=== PATIENT | male | born 1940 | race Caucasian/White ===

== ENCOUNTER 2016-11-03 10:00 | Emergency (ER) | payer MEDICAID, MEDICARE, OTHER ==
[~2016-11-03] VITALS: Ht 182.9 cm; Wt 76.0 kg
[2016-11-03 10:02] VITALS: BP 99/58; PULSE 100; RESP 20; TEMP 98.5; O2SAT 97
--- NOTE | 2016-11-03 11:21 | RADRPT ---
EXAM DATE/TIME: 11/03/2016 11:00 [facility] COMPARISON: No previous studies available for comparison. INDICATIONS : Tightness in chest. MEDICAL HISTORY : None. SURGICAL HISTORY : None. ENCOUNTER: Initial ACUITY: 1 day PAIN SCORE: 5/10 LOCATION: Bilateral chest FINDINGS: PA and lateral views of the chest demonstrate the lungs to be symmetrically aerated without evidence of mass, infiltrate or effusion. The cardiomediastinal contours are unremarkable. Osseous structure s are intact. CONCLUSION: Normal examination. Anil Chiang MD on November 03, 2016 at 11:19 Board Certified Radiologist. This report was verified electronically.
--- NOTE | 2016-11-03 11:22 | RADRPT ---
EXAM DATE/TIME: 11/03/2016 11:06 [facility] COMPARISON: No previous studies available for comparison. INDICATIONS : Abdominal distention. Last bowel movement was 2 weeks ago. MEDICAL HISTORY : None. SURGICAL HISTORY : None. ENCOUNTER: Initial ACUITY: 2 weeks PAIN SCORE: 5/10 LOCATION: Bilateral abdomen FINDINGS: Supine view of the abdomen was performed. The abdominal bowel gas pattern is normal. No abnormal ma sses, or organomegaly is seen. The osseous structures are unremarkable. CONCLUSION: Normal examination. Few calcifications overlying the right kidney could be renal stones. Anil Chiang MD on November 03, 2016 at 11:20 Board Certified Radiologist. This report was verified electronically.
[2016-11-03 12:00] LABS: AUTOMATED NEUTROPHIL # 8.4 TH/MM3 (1.8-7.7); BASOPHIL # 0.1 TH/MM3 (0-0.2); BASOPHIL % 0.9 % (0.0-2.0); EOSINOPHIL # 0.1 TH/MM3 (0-0.4); EOSINOPHIL % 1.2 % (0.0-4.0); HEMATOCRIT 38.5 % (39.0-51.0); HEMO FLAGS DIFF FINAL; LYMPH % 16.6 % (9.0-44.0); LYMPHOCYTE # 1.9 TH/MM3 (1.0-4.8); MEAN CELL VOLUME 85.4 FL (80.0-100.0); MEAN CORPUSCULAR HEMOGLOBIN 29.5 PG (27.0-34.0); MEAN CORPUSCULAR HGB CONC 34.6 % (32.0-36.0); MONO % 8.2 % (0.0-8.0); NEUT % 73.1 % (16.0-70.0); PLATELET COUNT 510 TH/MM3 (150-450); RED BLOOD COUNT 4.51 MIL/MM3 (4.50-5.90); RED CELL DISTRIBUTION WIDTH 14.2 % (11.6-17.2); WHITE BLOOD COUNT 11.5 TH/MM3 (4.0-11.0)
[2016-11-03] MEDS ORDERED: NO MEDICATIONS (12:09)
[2016-11-03] MEDS ORDERED: SODIUM CHLOR 0.9% 1000 ML INJ 1,000 ML IV SCH (12:14)
[2016-11-03] MEDS ORDERED: SODIUM CHLORIDE 0.9% FLUSH 10 ML FLUSH IV FLUSH PRN (12:15)
--- NOTE | 2016-11-03 12:17 | PD ---
HPI Chief Complaint: General Weakness Time Seen by Provider: 12:17 Travel History International Travel<30 days: No Contact w/Intl Traveler<30days: No Traveled to known affect area: No History of Present Illness HPI Patient comes in for evaluation of generalized weakness on one week. Patient reports that 3 weeks ago he was having cold symptoms consisting of dry nonproductive cough and nonbloody loose stools. Patient states that resolved after drinking orange juice and resting. Patient reports over the past week he' s had soreness throughout his back and pain in his legs when he tries to walk. Patient denies doing anything for this. Denies anything making it better or worse. Patient denies any fevers, chest pain, shortness of breath, abdominal pain, headache, nausea/vomiting, numbness or tingling anywhere, or loss of bowel or bladder. Patient reports he is not not had a solid bowel movement in 3 weeks, but relates this to not eating and only having ensure as well as orange juice. PFSH Past Medical History AAA: Yes Diminished Hearing: No Tetanus Vaccination: < 5 Years Influenza Vaccination: Yes Social History Alcohol Use: No Tobacco Use: Yes Substance Use: Yes (marijuana) Allergies-Medications (Allergen,Severity, Reaction): Coded Allergies: No Known Allergies (Unverified , 11/03/16) Reported Meds & Prescriptions Reported Meds & Active Scripts Active Reported [No Medications] Review of Systems Except as stated in HPI: all other systems reviewed are Neg Physical Exam Narrative GENERAL: Well-developed, well nourished, in no acute distress, and non-ill appearing. SKIN: Focused skin assessment warm and dry. HEAD: Atraumatic. Normocephalic. EYES: Pupils equal and round. EOMI. No scleral icterus. No injection or drainage. ENT: No nasal bleeding or discharge. Mucous membranes pink and moist. NECK: Trachea midline. No JVD. Supple. No nuclear rigidity. CARDIOVASCULAR: Regular rate and rhythm. No murmur appreciated. RESPIRATORY: No accessory muscle use. No respiratory distress. Clear to auscultation. Breath sounds equal bilaterally. GASTROINTESTINAL: Abdomen soft, non-tender, nondistended. Hepatic and splenic margins not palpable. Normal bowel sounds 4. No pulsatile mass. MUSCULOSKELETAL: No obvious deformities. No clubbing. No cyanosis. No edema. Full range of motion. NEUROLOGICAL: Awake and alert. No obvious cranial nerve deficits. Motor grossly within normal limits. Normal speech. PSYCHIATRIC: Appropriate mood and affect; insight and judgment normal. Data Data Last Documented VS Vital Signs Date Time Temp Pulse Resp B/P Pulse Ox O2 Delivery O2 Flow Rate FiO2 11/03/16 14:59 70 18 141/74 99 11/03/16 12:36 Room Air 11/03/16 10:02 98.5 Orders Complete Blood Count With Diff (11/03/16 10:45) Comprehensive Metabolic Panel (11/03/16 10:45) Prothrombin Time / Inr (Pt) (11/03/16 10:45) Act Partial Throm Time (Ptt) (11/03/16 10:45) Urinalysis - C+S If Indicated (11/03/16 10:45) Electrocardiogram (11/03/16 10:45) Abdomen, Kub Only (11/03/16 10:45) Chest, Pa & Lat (11/03/16 ) Magnesium (Mg) (11/03/16 10:45) Creatine Kinase (Cpk) (11/03/16 12:14) Iv Access Insert/Monitor (11/03/16 12:14) Ecg Monitoring (11/03/16 12:14) Oximetry (11/03/16 12:14) Sodium Chlor 0.9% 1000 Ml Inj (Ns 1000 M (11/03/16 12:14) Sodium Chloride 0.9% Flush (Ns Flush) (11/03/16 12:15) CKMB (11/03/16 11:38) CKMB% (11/03/16 11:38) Sodium Chlor 0.9% 1000 Ml Inj (Ns 1000 M (11/03/16 13:45) Labs Laboratory Tests Test 11/03/16 11/03/16 11:38 12:45 White Blood Count 11.5 TH/MM3 Red Blood Count 4.51 MIL/MM3 Hemoglobin 13.3 GM/DL Hematocrit 38.5 % Mean Corpuscular Volume 85.4 FL Mean Corpuscular Hemoglobin 29.5 PG Mean Corpuscular Hemoglobin 34.6 % Concent Red Cell Distribution Width 14.2 % Platelet Count 510 TH/MM3 Mean Platelet Volume 7.3 FL Neutrophils (%) (Auto) 73.1 % Lymphocytes (%) (Auto) 16.6 % Monocytes (%) (Auto) 8.2 % Eosinophils (%) (Auto) 1.2 % Basophils (%) (Auto) 0.9 % Neutrophils # (Auto) 8.4 TH/MM3 Lymphocytes # (Auto) 1.9 TH/MM3 Monocytes # (Auto) 0.9 TH/MM3 Eosinophils # (Auto) 0.1 TH/MM3 Basophils # (Auto) 0.1 TH/MM3 CBC Comment DIFF FINAL Differential Comment Prothrombin Time 11.7 SEC Prothromb Time International 1.1 RATIO Ratio Activated Partial 28.7 SEC Thromboplast Time Sodium Level 129 MEQ/L Potassium Level 4.7 MEQ/L Chloride Level 93 MEQ/L Carbon Dioxide Level 25.3 MEQ/L Anion Gap 11 MEQ/L Blood Urea Nitrogen 39 MG/DL Creatinine 1.27 MG/DL Estimat Glomerular Filtration 56 ML/MIN Rate Random Glucose 100 MG/DL Calcium Level 9.2 MG/DL Magnesium Level 2.7 MG/DL Total Bilirubin 0.7 MG/DL Aspartate Amino Transf 55 U/L (AST/SGOT) Alanine Aminotransferase 40 U/L (ALT/SGPT) Alkaline Phosphatase 76 U/L Total Creatine Kinase 428 U/L Creatine Kinase MB 2.6 NG/ML Creatine Kinase MB % 0.6 % Total Protein 8.1 GM/DL Albumin 3.8 GM/DL Urine Color YELLOW Urine Turbidity CLEAR Urine pH 6.0 Urine Specific [place] 1.031 Urine Protein 30 mg/dL Urine Glucose (UA) NEG mg/dL Urine Ketones 40 mg/dL Urine Occult Blood NEG Urine Nitrite NEG Urine Bilirubin NEG Urine Urobilinogen 2.0 MG/DL Urine Leukocyte Esterase NEG Urine RBC LESS THAN 1 /hpf Urine WBC 1 /hpf Urine Hyaline Casts 1 /lpf Microscopic Urinalysis Comment CULT NOT INDICATED MDM Medical Decision Making Medical Screen Exam Complete: Yes Emergency Medical Condition: Yes Interpretation(s) EKG reviewed by Dr. Gaines shows sinus rhythm with ventricular rate of 79. No STEMI. Differential Diagnosis Electrolyte abnormality, generalized weakness, rhabdomyolysis, pneumonia, other Narrative Course Patient was seen and examined. IV was established labs were obtained and reviewed. Patient is hydrated with IV fluid. Discussed patient with Dr. Encinas , who saw and evaluated the patient and is agreement with plan of care and disposition. Case management was consulted to help set up outpatient home health and/or physical therapy. Patient in no obvious distress upon re-evaluation. All pertinent laboratory/ Radiology result(s) discussed with patient. Any questions/concerns in reference to patient diagnosis/condition discussed and clarified prior to patient's discharge. Reinforced sheer importance of close follow up with patient's primary physician or primary care clinic. Instructed patient to return to ED immediately, if symptoms return/worsen. Pt showed understanding of above instructions. Further instructions and recommendations were detailed in discharge paperwork. Pt ambulated without difficulty out of ED at discharge. Diagnosis Primary Impression: Weakness Additional Impression: Dehydration Referrals: [facility] Patient Instructions: Dehydration (ED), General Instructions, Weakness (ED) Additional Instructions: Follow-up with your primary care physician in one to 3 days for reevaluation. Use [id number] Tylenol for pain control as needed. Follow instructions on the packaging. Drink plenty of non-caffeinated and nonalcoholic fluids. Return to the emergency department if symptoms get worse. Disposition: 01 DISCHARGE HOME Condition: Stable Nakul Obregon Nov 03, 2016 12:17
[2016-11-03 12:26] LABS: ALT (GPT) 40 U/L (12-78); ANION GAP 11 MEQ/L (5-15); AST (GOT) 55 U/L (15-37); BICARBONATE 25.3 MEQ/L (21.0-32.0); BLOOD UREA NITROGEN 39 MG/DL (7-18); CHLORIDE 93 MEQ/L (98-107); GLOMERULAR FILTRATION RATE 56 ML/MIN (>89); MAGNESIUM 2.7 MG/DL (1.5-2.5); POTASSIUM 4.7 MEQ/L (3.5-5.1); SODIUM (NA) 129 MEQ/L (136-145)
[2016-11-03 12:28] LABS: ALKALINE PHOSPHATASE 76 U/L (45-117); TOTAL BILIRUBIN ADULT 0.7 MG/DL (0.2-1.0)
[2016-11-03 12:29] LABS: APTT (PATIENT) 28.7 SEC (24.3-30.1); INTERNATIONAL NORMALIZED RATIO 1.1 RATIO; PROTHROMBIN TIME - PATIENT 11.7 SEC (9.8-11.6)
[2016-11-03 12:36] VITALS: BP 138/73; PULSE 77; RESP 16; O2SAT 95
[2016-11-03 13:13] LABS: BLOOD, URINE NEG (NEG); GLUCOSE,URINE NEG (NEG); HYALINE CAST, URINE 1 /lpf (RARE); KETONE, URINE 40 mg/dL (NEG); NITRITE,URINE NEG (NEG); URINE COLOR YELLOW (YELLW/STRAW)
[2016-11-03 13:15] LABS: COMMENT (UR) CULT NOT INDICATED; CULTURE IF INDICATED CULT NOT INDICATED
--- NOTE | 2016-11-03 13:33 | HHI.FF ---
Face to Face Verification Diagnosis: (1) Weakness Physical Therapy Order: Evaluate and Treat, Improve ambulation, Strength and gait training Occupational Therapy Order: Evaluate and Treat, Improve ADL, Gross motor coordination, Fine motor coordination Home Health Aide Order: To Assist In: Bathing and personal care, general office dispatcher and meal prep Manager Trainee Order: To Evaluate: Living conditions/environment, Support services Order: To Provide: Long range planning, Community services I have seen patient Art Slater on 11/03/16. My clinical findings support the need for the requested home health care services because: Ltd mobility - disease progression Deconditioned w/ increased weakness Med compliance is questionable Limited ability to care for self High risk of falls I certify that my clinical findings support that this patient is homebound because: Unsteady gait/balance Need for psychosocial assistance Kellie Encinas MD Nov 03, 2016 13:33
[2016-11-03 13:35] LABS: CKMB 2.6 NG/ML (0.5-3.6)
--- NOTE | 2016-11-03 13:35 | PD ---
Data Data Last Documented VS Vital Signs Date Time Temp Pulse Resp B/P Pulse Ox O2 Delivery O2 Flow Rate FiO2 11/03/16 12:36 77 16 138/73 95 Room Air 11/03/16 10:02 98.5 Orders Complete Blood Count With Diff (11/03/16 10:45) Comprehensive Metabolic Panel (11/03/16 10:45) Prothrombin Time / Inr (Pt) (11/03/16 10:45) Act Partial Throm Time (Ptt) (11/03/16 10:45) Urinalysis - C+S If Indicated (11/03/16 10:45) Electrocardiogram (11/03/16 10:45) Abdomen, Kub Only (11/03/16 10:45) Chest, Pa & Lat (11/03/16 ) Magnesium (Mg) (11/03/16 10:45) Creatine Kinase (Cpk) (11/03/16 12:14) Iv Access Insert/Monitor (11/03/16 12:14) Ecg Monitoring (11/03/16 12:14) Oximetry (11/03/16 12:14) Sodium Chlor 0.9% 1000 Ml Inj (Ns 1000 M (11/03/16 12:14) Sodium Chloride 0.9% Flush (Ns Flush) (11/03/16 12:15) CKMB (11/03/16 11:38) CKMB% (11/03/16 11:38) Sodium Chlor 0.9% 1000 Ml Inj (Ns 1000 M (11/03/16 13:45) Labs Laboratory Tests Test 11/03/16 11/03/16 11:38 12:45 White Blood Count 11.5 TH/MM3 Red Blood Count 4.51 MIL/MM3 Hemoglobin 13.3 GM/DL Hematocrit 38.5 % Mean Corpuscular Volume 85.4 FL Mean Corpuscular Hemoglobin 29.5 PG Mean Corpuscular Hemoglobin 34.6 % Concent Red Cell Distribution Width 14.2 % Platelet Count 510 TH/MM3 Mean Platelet Volume 7.3 FL Neutrophils (%) (Auto) 73.1 % Lymphocytes (%) (Auto) 16.6 % Monocytes (%) (Auto) 8.2 % Eosinophils (%) (Auto) 1.2 % Basophils (%) (Auto) 0.9 % Neutrophils # (Auto) 8.4 TH/MM3 Lymphocytes # (Auto) 1.9 TH/MM3 Monocytes # (Auto) 0.9 TH/MM3 Eosinophils # (Auto) 0.1 TH/MM3 Basophils # (Auto) 0.1 TH/MM3 CBC Comment DIFF FINAL Differential Comment Prothrombin Time 11.7 SEC Prothromb Time International 1.1 RATIO Ratio Activated Partial 28.7 SEC Thromboplast Time Sodium Level 129 MEQ/L Potassium Level 4.7 MEQ/L Chloride Level 93 MEQ/L Carbon Dioxide Level 25.3 MEQ/L Anion Gap 11 MEQ/L Blood Urea Nitrogen 39 MG/DL Creatinine 1.27 MG/DL Estimat Glomerular Filtration 56 ML/MIN Rate Random Glucose 100 MG/DL Calcium Level 9.2 MG/DL Magnesium Level 2.7 MG/DL Total Bilirubin 0.7 MG/DL Aspartate Amino Transf 55 U/L (AST/SGOT) Alanine Aminotransferase 40 U/L (ALT/SGPT) Alkaline Phosphatase 76 U/L Total Creatine Kinase 428 U/L Total Protein 8.1 GM/DL Albumin 3.8 GM/DL Urine Color YELLOW Urine Turbidity CLEAR Urine pH 6.0 Urine Specific [place] 1.031 Urine Protein 30 mg/dL Urine Glucose (UA) NEG mg/dL Urine Ketones 40 mg/dL Urine Occult Blood NEG Urine Nitrite NEG Urine Bilirubin NEG Urine Urobilinogen 2.0 MG/DL Urine Leukocyte Esterase NEG Urine RBC LESS THAN 1 /hpf Urine WBC 1 /hpf Urine Hyaline Casts 1 /lpf Microscopic Urinalysis Comment CULT NOT INDICATED [facility] Supervised Visit with [facility]: Yes Narrative Course The history, exam, and medical decision-making in the associated midlevel provider note were completed with my assistance. I reviewed and agree with the findings presented. I attest that I had a [id number] encounter with the patient on the same day, and personally performed and documented my assessment and findings in the medical record. *My assessment and Findings: This is a chronically unwell 75-year-old male who presents to the emergency department reporting cold and flu symptoms that were present for 2 weeks leaving him dehydrated and very weak. He's having some difficulty ambulating independently. He is here with her friend. Labs demonstrate some hyponatremia and acute renal insufficiency consistent with dehydration. He was given 2 L of IV fluid. Patient appears to have chronic peripheral arterial disease affecting his right lower extremity. He is thin and appears cachectic. I suspect he has some underlying chronic medical problems which are not currently being addressed. He hasn't seen a primary care physician in over a year. [facility]. I don't think organ able to sort all this out in the emergency department and I don't think his presentation reflects an acute emergency. Patient was set up for home health care with case management and encouraged to [facility]. Kellie Encinas MD Nov 03, 2016 13:35
[2016-11-03] MEDS ORDERED: SODIUM CHLOR 0.9% 1000 ML INJ 1,000 ML IV ONE (13:45)
[2016-11-03 14:59] VITALS: BP 141/74
--- NOTE | 2016-11-03 22:44 | EKG ---
Date Performed: 11/03/2016 Time Performed: 12:01:12 PTAGE: 75 years EKG: Sinus rhythm NORMAL ECG NO PREVIOUS TRACING DOCTOR: Juan Oviedo Interpretating Date/Time 11/03/2016 22:43:20
[2016-11-04] MEDS ORDERED: VITA100C6 CHEW ×2 (17:54)
[2016-11-04] MEDS ORDERED: CYAN100017 PO ×2 (17:54)
== END 2016-11-03 15:02 | disposition home or self-care (01) ==
LOC: NEPC 10:00
DX: R53.1 Weakness (principal); E86.0 Dehydration; Z72.0 Tobacco use
CPT/HCPCS: 71020; 74000; 80053; 81001; 82550; 82552; 83735; 85025; 85610; 85730; 93005; 96360; 99285; J7030

== ENCOUNTER 2016-11-04 14:33 | Inpatient (IN) | payer MEDICARE, OTHER ==
[~2016-11-04] VITALS: Ht 182.9 cm; Wt 75.9 kg
[~2016-11-04 14:33] MED LIST: NO MEDICATIONS
[2016-11-04 17:04] VITALS: BP 150/84; PULSE 79; RESP 17; TEMP 98.4; O2SAT 97
[2016-11-04] MEDS ORDERED: SODIUM CHLOR 0.9% 1000 ML INJ 1,000 ML IV ONE (17:16)
--- NOTE | 2016-11-04 17:29 | PD ---
HPI Chief Complaint: GI Complaint Time Seen by Provider: 17:26 Travel History International Travel<30 days: No Contact w/Intl Traveler<30days: No History of Present Illness HPI Patient comes from the [place] for reeval[place]. Patient was seen here yesterday. Patient states [facility] while he was there he started feeling dizzy when he stood up and was not able to ambulate on his own. Patient denies any chest pain with this, shortness of breath, nausea, vomiting, or diarrhea. Patient's only pain complaint is low back pain that he reports got worse after laying in the ER yesterday. Patient states he just felt like his center of gravity was off. Patient denies syncope or near syncope. Patient denies any trauma. [facility] Past Medical History AAA: Yes Diminished Hearing: No Past Surgical History Abdominal Aneurysm Repair: Yes (2013) Social History Alcohol Use: Yes (social) Tobacco Use: Yes Substance Use: Yes (marijuana) Allergies-Medications (Allergen,Severity, Reaction): Coded Allergies: No Known Allergies (Unverified , 11/04/16) Reported Meds & Prescriptions Reported Meds & Active Scripts Active Reported Vitamin C (Ascorbic Acid) 100 Mg Chew 100 Mg CHEW B-12 (Cyanocobalamin) 1,000 Mcg Cap 1,000 Mcg PO BID Review of Systems Except as stated in HPI: all other systems reviewed are Neg Physical Exam Narrative GENERAL: Well-developed, well nourished, in no acute distress, and non-ill appearing. SKIN: Focused skin assessment warm and dry. HEAD: Atraumatic. Normocephalic. EYES: Pupils equal and round. EOMI. No scleral icterus. No injection or drainage. ENT: No nasal bleeding or discharge. Mucous membranes pink and moist. Tympanic membranes are pearly barry bilaterally. Left was slightly bulging compared to right. Uvula is midline. Posterior pharynx nonerythematous without exudate. NECK: Trachea midline. No cervical lymphadenopathy. Supple. No nuclear rigidity. CARDIOVASCULAR: Regular rate and rhythm. No murmur appreciated. RESPIRATORY: No accessory muscle use. No respiratory distress. Clear to auscultation. Breath sounds equal bilaterally. GASTROINTESTINAL: Abdomen soft, non-tender, nondistended. Hepatic and splenic margins not palpable. Normal bowel sounds 4. No pulsatile mass. MUSCULOSKELETAL: No obvious deformities. No clubbing. No cyanosis. No edema. Full range of motion. NEUROLOGICAL: Awake and alert. No obvious cranial nerve deficits. Motor grossly within normal limits. Normal speech. PSYCHIATRIC: Appropriate mood and affect; insight and judgment normal. Data Data Last Documented VS Vital Signs Date Time Temp Pulse Resp B/P Pulse Ox O2 Delivery O2 Flow Rate FiO2 11/04/16 21:09 104 18 100/57 11/04/16 17:04 98.4 97 Orders Electrocardiogram (11/04/16 17:16) Complete Blood Count With Diff (11/04/16 17:16) Comprehensive Metabolic Panel (11/04/16 17:16) Magnesium (Mg) (11/04/16 17:16) Ckmb (Isoenzyme) Profile (11/04/16 17:16) Troponin I (11/04/16 17:16) Ct Brain W/O Iv Contrast(Rout) (11/04/16 17:16) Ecg Monitoring (11/04/16 17:16) Iv Access Insert/Monitor (11/04/16 17:16) Oximetry (11/04/16 17:16) Meclizine (Antivert) (11/04/16 17:30) Sodium Chloride 0.9% Flush (Ns Flush) (11/04/16 17:30) Sodium Chlor 0.9% 1000 Ml Inj (Ns 1000 M (11/04/16 17:16) Orthostatic Vital Signs (11/04/16 17:16) Ct Abd/Pel W Iv Contrast(Rout) (11/04/16 ) Ct Pulmonary Angiogram (11/04/16 ) Ketorolac Inj (Toradol Inj) (11/04/16 18:15) CKMB (11/04/16 17:38) CKMB% (11/04/16 17:38) Iohexol 350 Inj (Omnipaque 350 Inj) (11/04/16 19:28) Admit Order (Ed Use Only) (11/04/16 21:39) Labs Laboratory Tests Test 11/04/16 11/04/16 17:30 17:38 White Blood Count 12.4 TH/MM3 Red Blood Count 4.14 MIL/MM3 Hemoglobin 11.9 GM/DL Hematocrit 35.5 % Mean Corpuscular Volume 85.8 FL Mean Corpuscular Hemoglobin 28.8 PG Mean Corpuscular Hemoglobin 33.6 % Concent Red Cell Distribution Width 14.0 % Platelet Count 402 TH/MM3 Mean Platelet Volume 7.2 FL Neutrophils (%) (Auto) 69.7 % Lymphocytes (%) (Auto) 18.8 % Monocytes (%) (Auto) 10.2 % Eosinophils (%) (Auto) 1.0 % Basophils (%) (Auto) 0.3 % Neutrophils # (Auto) 8.6 TH/MM3 Lymphocytes # (Auto) 2.3 TH/MM3 Monocytes # (Auto) 1.3 TH/MM3 Eosinophils # (Auto) 0.1 TH/MM3 Basophils # (Auto) 0.0 TH/MM3 CBC Comment DIFF FINAL Differential Comment Sodium Level 129 MEQ/L Potassium Level 4.0 MEQ/L Chloride Level 94 MEQ/L Carbon Dioxide Level 25.0 MEQ/L Anion Gap 10 MEQ/L Blood Urea Nitrogen 27 MG/DL Creatinine 1.14 MG/DL Estimat Glomerular Filtration 63 ML/MIN Rate Random Glucose 93 MG/DL Calcium Level 8.7 MG/DL Magnesium Level 2.3 MG/DL Total Bilirubin 0.7 MG/DL Aspartate Amino Transf 48 U/L (AST/SGOT) Alanine Aminotransferase 34 U/L (ALT/SGPT) Alkaline Phosphatase 67 U/L Total Creatine Kinase 324 U/L Creatine Kinase MB 2.6 NG/ML Creatine Kinase MB % 0.8 % Troponin I LESS THAN 0.02 NG/ML Total Protein 7.2 GM/DL Albumin 3.5 GM/DL MDM Medical Decision Making Medical Screen Exam Complete: Yes Emergency Medical Condition: Yes Interpretation(s) EKG reviewed by Dr. Wray, shows sinus rhythm with a ventricular rate of 69. No STEMI. Differential Diagnosis Electrolyte abnormality, arrhythmia, vertigo, metastatic disease, PE, pneumonia , other Narrative Course Patient seen and examined. Initial laboratory and radiological studies were obtained and reviewed. Discussed all findings including fatty dense mass noted in the left retroperitoneum on the abdomen and instructed patient to follow up with this with his primary care provider. Patient's sodium was unchanged from yesterday. Patient's found to have orthostatic hypotension. Discussed all findings and plan of care and patient, who was agreeable for admission. All questions were answered. Physician Communication Physician Communication [id number] Kaiser, who is agreeable to admit the patient. Diagnosis Primary Impression: Orthostatic hypotension Additional Impression: Hyponatremia Admitting Information Admitting Physician Requests: Observation Condition: Stable Nakul Obregon Nov 04, 2016 17:29
[2016-11-04] MEDS ORDERED: MECLIZINE HCL 25 MG TAB PO ONE (17:30)
[2016-11-04] MEDS ORDERED: SODIUM CHLORIDE 0.9% FLUSH 10 ML FLUSH IVF PRN (17:30)
[2016-11-04 17:54] LABS: AUTOMATED NEUTROPHIL # 8.6 TH/MM3 (1.8-7.7); BASOPHIL % 0.3 % (0.0-2.0); EOSINOPHIL # 0.1 TH/MM3 (0-0.4); HEMATOCRIT 35.5 % (39.0-51.0); HEMO FLAGS DIFF FINAL; LYMPH % 18.8 % (9.0-44.0); LYMPHOCYTE # 2.3 TH/MM3 (1.0-4.8); MEAN CELL VOLUME 85.8 FL (80.0-100.0); MEAN CORPUSCULAR HEMOGLOBIN 28.8 PG (27.0-34.0); MEAN CORPUSCULAR HGB CONC 33.6 % (32.0-36.0); MONO % 10.2 % (0.0-8.0); NEUT % 69.7 % (16.0-70.0); PLATELET COUNT 402 TH/MM3 (150-450); RED BLOOD COUNT 4.14 MIL/MM3 (4.50-5.90); WHITE BLOOD COUNT 12.4 TH/MM3 (4.0-11.0)
[2016-11-04] MEDS ORDERED: CYAN100017 PO ×2 (17:54)
[2016-11-04] MEDS ORDERED: VITA100C6 CHEW ×2 (17:54)
[2016-11-04 18:09] VITALS: BP_SYST 221; BP_SYST 231; BP_DIAS 102; BP_DIAS 92; RESP 15
[2016-11-04] MEDS ORDERED: KETOROLAC TROMETHAMINE 30 MG/ML (IVP) VIAL IV PUSH ONE (18:15)
[2016-11-04 18:21] LABS: ALKALINE PHOSPHATASE 67 U/L (45-117); ALT (GPT) 34 U/L (12-78); ANION GAP 10 MEQ/L (5-15); AST (GOT) 48 U/L (15-37); BLOOD UREA NITROGEN 27 MG/DL (7-18); CHLORIDE 94 MEQ/L (98-107); CREATINE KINASE 324 U/L (39-308); GLOMERULAR FILTRATION RATE 63 ML/MIN (>89); MAGNESIUM 2.3 MG/DL (1.5-2.5); SODIUM (NA) 129 MEQ/L (136-145); TOTAL BILIRUBIN ADULT 0.7 MG/DL (0.2-1.0)
[2016-11-04 18:37] LABS: CKMB 2.6 NG/ML (0.5-3.6)
[2016-11-04] MEDS ORDERED: IOHEXOL 350 MG/ML 10 ML VIAL (for RAD DIAG) IV ONE (19:28)
--- NOTE | 2016-11-04 19:43 | RADRPT ---
EXAM DATE/TIME: 11/04/2016 19:14 [facility] COMPARISON: No previous studies available for comparison. INDICATIONS : Shortness of breath and weakness. IV CONTRAST: 100 cc Omnipaque 350 (iohexol) IV ; Cumulative dose for multiple exams. RADIATION DOSE: 11.61 CTDIvol (mGy) ; Combined studies - Thorax/Abdomen/Pelvis MEDICAL HISTORY : Aneurysm, abdominal. SURGICAL HISTORY : Abdominal aortic aneurysm repair. ENCOUNTER: Initial ACUITY: 1 day PAIN SCALE: 3/10 LOCATION: chest TECHNIQUE: Volumetric scanning of the chest was performed using a pulmonary embolism protocol MIP images were re constructed. Using automated exposure control and adjustment of the mA and/or kV according to patien t size, radiation dose was kept as low as reasonably achievable to obtain optimal diagnostic quality images. FINDINGS: PULMONARY ARTERIES: No filling defects are seen in the pulmonary arteries through the segmental level. LUNGS: Mild left lower lobe atelectasis. Mild emphysematous changes. PLEURAE: Minimal pleural calcification in the central right lung base. No evidence of effusion. MEDIASTINUM: There is good visualization of the great vessels of the middle mediastinum. No evidence of mediastin al or hilar adenopathy/mass. Prominent atherosclerotic changes involving the thoracic aorta and coron yanick artery calcifications noted. MUSCULOSKELETAL: Within normal limits for patient age. MISCELLANEOUS: The visualized upper abdominal organs demonstrate no acute abnormality. CONCLUSION: No evidence of pulmonary embolism Nadeem Beatty MD on November 04, 2016 at 19:35 Board Certified Radiologist. This report was verified electronically.
--- NOTE | 2016-11-04 20:20 | RADRPT ---
EXAM DATE/TIME: 11/04/2016 19:07 [facility] COMPARISON: No previous studies available for comparison. INDICATIONS : Weakness and weight loss; patient is unable to ambulate. RADIATION DOSE: 56.35 CTDIvol (mGy) MEDICAL HISTORY : None SURGICAL HISTORY : None. ENCOUNTER: Initial ACUITY: 3 days PAIN SCALE: 0/10 LOCATION: cranial TECHNIQUE: Multiple contiguous axial images were obtained of the head. Using automated exposure control and adj ustment of the mA and/or kV according to patient size, radiation dose was kept as low as reasonably a chievable to obtain optimal diagnostic quality images. FINDINGS: CEREBRUM: The ventricles are normal for age. No evidence of midline shift, mass lesion, hemorrhage or acute in farction. No extra-axial fluid collections are seen. POSTERIOR FOSSA: The cerebellum and brainstem are intact. The 4th ventricle is midline. The cerebellopontine angle i s unremarkable. EXTRACRANIAL: The visualized portion of the orbits is intact. SKULL: The calvaria is intact. No evidence of skull fracture. CONCLUSION: Normal examination. Nadeem Beatty MD on November 04, 2016 at 20:18 Board Certified Radiologist. This report was verified electronically.
--- NOTE | 2016-11-04 20:31 | RADRPT ---
EXAM DATE/TIME: 11/04/2016 19:14 [place] COMPARISON: No previous studies available for comparison. INDICATIONS : Weight loss and abdominal pain. IV CONTRAST: 100 cc Omnipaque 350 (iohexol) IV ; Cumulative dose for multiple exams. ORAL CONTRAST: No oral contrast ingested. RADIATION DOSE: 11.52 CTDIvol (mGy) ; Combined studies - Thorax/Abdomen/Pelvis MEDICAL HISTORY : Aneurysm, abdominal. SURGICAL HISTORY : Abdominal aortic aneurysm repair. ENCOUNTER: Initial ACUITY: 1 day PAIN SCALE: 4/10 LOCATION: Bilateral lower quadrant TECHNIQUE: Volumetric scanning of the abdomen and pelvis was performed. Using automated exposure control and ad justment of the mA and/or kV according to patient size, radiation dose was kept as low as reasonably achievable to obtain optimal diagnostic quality images. FINDINGS: LOWER LUNGS: The visualized lower lungs are clear. LIVER: Homogeneous density without lesion. There is no dilation of the biliary tree. No calcified gallston es. SPLEEN: Normal size without lesion. PANCREAS: Within normal limits. KIDNEYS: Multiple small bilateral renal cortical cysts. No evidence of hydronephrosis. No stones. ADRENAL GLANDS: Within normal limits. VASCULAR: Previous aortic aneurysm open repair. BOWEL/MESENTERY: The stomach, small bowel, and colon demonstrate no acute abnormality. There is no free intraperitone al air or fluid. ABDOMINAL WALL: Small irregular shaped fat and soft tissue density process in the left lower quadrant may be sequela of subcutaneous injections with scarring and fat necrosis. Correlation recommended.. RETROPERITONEUM: There is an oblong fat density process in the lateral left retroperitoneum which measures roughly 10 x 7.5 x 3.5 cm. Lesion is fairly well-circumscribed, however there are soft tissue density septations in the soft tissue density capsule. BLADDER: No wall thickening or mass. REPRODUCTIVE: Within normal limits. INGUINAL: There is no lymphadenopathy or hernia. MUSCULOSKELETAL: Within normal limits for patient age. CONCLUSION: Primarily fatty density mass in the left retroperitoneum has a relatively benign appearance, however followup to document stability would be suggested. No definite acute CT findings in the abdomen or pelvis. Nadeem Beatty MD on November 04, 2016 at 20:20 Board Certified Radiologist. This report was verified electronically.
[2016-11-04 21:03] VITALS: BP 185/91; RESP 18
[2016-11-04 21:05] VITALS: BP 126/58; RESP 16
[2016-11-04 21:09] VITALS: BP 100/57; RESP 18
--- NOTE | 2016-11-04 21:51 | HHI.HP ---
[facility] No Primary Care Physician Admission Diagnosis symptomatic orthostatic hypotension, hyponatremia Diagnoses: (1) Orthostatic hypotension Diagnosis: Principal (2) Hyponatremia Diagnosis: Principal (3) Dehydration Diagnosis: Principal (4) Leukocytosis Diagnosis: Principal (5) Rhabdomyolysis Diagnosis: Principal (6) Abdominal mass Diagnosis: Principal (7) Tobacco abuse Diagnosis: Principal Travel History International Travel<30 Days: No Contact w/Intl Traveler <30 Da: No History of Present Illness This is a 75-year-old male with a PMH of HTN, AAA Repair and Tobacco Abuse who presented to the ER with complaints of dizziness x2 days. Denies fever, chills , chest pain or SOB. Seen in ER on 11/03/16 for similar symptoms in addition to cough/cold symptoms, WBC 11.5, Na 129 at that time, s/p 2L IVF and d/c'd home w / outpatient follow up. Returns today w/ ongoing complaints. On arrival, BP 150/84, HR 79, O2 sat 97% on RA, Afebrile. WBC 12.4. Na 129. GFR 63. CT Head negative. CTA Pulm negative for PE. CT Abd/Pelvis w/ fatty density mass left retroperitoneum w/ benign appearance. +Orthostatic Vitals Signs s/p IVF in ER. Review of Systems Except as stated in HPI: all other systems reviewed are Neg ROS: 14 point review of systems otherwise negative. Past Family Social History Past Medical History PMH: HTN, AAA Repair and Tobacco Abuse Past Surgical History PAST SURGICAL HISTORY: AAA Repair Allergies: Coded Allergies: No Known Allergies (Unverified , 11/04/16) Family History PAST FAMILY HISTORY: Reviewed. No h/o DM or CAD Social History PAST SOCIAL HISTORY: Occasional alcohol. Positive for tobacco. +Marijuana. Physical Exam Vital Signs Vital Signs Date Time Temp Pulse Resp B/P Pulse Ox O2 Delivery O2 Flow Rate FiO2 11/04/16 21:09 104 18 100/57 11/04/16 21:05 81 16 126/58 11/04/16 21:03 74 18 185/91 11/04/16 18:09 76 15 221/102 77 15 231/92 11/04/16 17:04 98.4 79 17 150/84 97 Physical Exam PE: GENERAL: Elderly male in no acute distress. HEENT: PERRLA, EOMI. No scleral icterus or conjunctival pallor. No lid lag or facial droop. CARDIOVASCULAR: Regular rate and rhythm. No obvious murmurs to auscultation. No chest tenderness to palpation. RESPIRATORY: No obvious rhonchi or wheezing. Clear to auscultation. Breath sounds equal bilaterally. GASTROINTESTINAL: Abdomen soft, non-tender, nondistended. BS normal. MUSCULOSKELETAL: Extremities without clubbing, cyanosis, or edema. No obvious deformities. NEUROLOGICAL: Awake, alert and oriented x4. No focal neurologic deficits. Moving both upper and lower extremities spontaneously. Laboratory Laboratory Tests Test 11/04/16 11/04/16 17:30 17:38 White Blood Count 12.4 Red Blood Count 4.14 Hemoglobin 11.9 Hematocrit 35.5 Mean Corpuscular Volume 85.8 Mean Corpuscular Hemoglobin 28.8 Mean Corpuscular Hemoglobin 33.6 Concent Red Cell Distribution Width 14.0 Platelet Count 402 Mean Platelet Volume 7.2 Neutrophils (%) (Auto) 69.7 Lymphocytes (%) (Auto) 18.8 Monocytes (%) (Auto) 10.2 Eosinophils (%) (Auto) 1.0 Basophils (%) (Auto) 0.3 Neutrophils # (Auto) 8.6 Lymphocytes # (Auto) 2.3 Monocytes # (Auto) 1.3 Eosinophils # (Auto) 0.1 Basophils # (Auto) 0.0 CBC Comment DIFF FINAL Differential Comment Sodium Level 129 Potassium Level 4.0 Chloride Level 94 Carbon Dioxide Level 25.0 Anion Gap 10 Blood Urea Nitrogen 27 Creatinine 1.14 Estimat Glomerular Filtration 63 Rate Random Glucose 93 Calcium Level 8.7 Magnesium Level 2.3 Total Bilirubin 0.7 Aspartate Amino Transf 48 (AST/SGOT) Alanine Aminotransferase 34 (ALT/SGPT) Alkaline Phosphatase 67 Total Creatine Kinase 324 Creatine Kinase MB 2.6 Creatine Kinase MB % 0.8 Troponin I LESS THAN 0.02 Total Protein 7.2 Albumin 3.5 Result Diagram: 11/04/16 1739 11/04/16 1735 Assessment and Plan Problem List: (1) Dehydration ICD Code: E86.0 Status: Acute (2) Orthostatic hypotension ICD Code: I95.1 Status: Acute (3) Hyponatremia ICD Code: E87.1 Status: Acute (4) Leukocytosis ICD Code: D72.829 Status: Acute (5) Rhabdomyolysis ICD Code: M62.82 Status: Acute (6) Abdominal mass ICD Code: R19.00 Status: Acute (7) Tobacco abuse ICD Code: Z72.0 Status: Acute Assessment and Plan A/P: 1. Dehydration/Dizziness: GFR 63, BUN 27, creatinine normal, U/a 11/03/16 negative for UTI. IVF, repeat labs in am. CT Head w/ no acute findings, images reviewed by me. 2. Orthostatic Hypotension: Secondary to above. Supine BP 194/96, Sitting 115 /75, Standing 98/60. S/p IVF in ER, will continue w/ IVF. Monitor BP. 3. Hyponatremia: Na 129, continue w/ IVF, repeat labs in am. 4. Leukocytosis: WBC 12.4, previously 11.5 on 11/03/16. CTA negative for PE, no infiltrates noted. CT Abd/Pelvis negative for acute findings, images reviewed by me. Afebrile. No signs of infection at this time, repeat labs in am. 5. Rhabdomyolysis: CPK 324, previously 428 on 11/03/16. Likely viral myositis w/ recent cough/cold symptoms. IVF, check CPK in am for trend. 6. Abdominal Mass: CT Abd/Pelvis w/ fatty density mass in the left retroperitoneum, relatively benign appearance, recommendation for outpatient follow-up. 7. Tobacco Abuse: Patient counseled. Ativan/NicoDerm prn. 8. DVT Prophylaxis: SCD/teds. 9. Social work for DC planning as needed. 10. Case discussed at length with the ER physician. Meenakshi Kaiser MD Nov 04, 2016 21:51
[2016-11-04] MEDS ORDERED: BISACODYL 10 MG SUPP RECTAL PRN (22:00)
[2016-11-04] MEDS ORDERED: SODIUM CHLORIDE 0.9% FLUSH 10 ML FLUSH IV FLUSH PRN (22:00)
[2016-11-04] MEDS ORDERED: ONDANSETRON HCL 4 MG/2 ML VIAL IVP PRN (22:00)
[2016-11-04] MEDS ORDERED: ACETAMINOPHEN 325 MG TAB PO PRN (22:00)
[2016-11-04] MEDS: SODIUM CHLOR 0.9% 1000 ML INJ 1,000 ML IV SCH (22:31)
[2016-11-04] MEDS: MORPHINE SULFATE 4 MG/ML INJ IV PRN (22:32)
[2016-11-04] MEDS: ACETAMINOPHEN/HYDROcodone 325 MG/5 MG TAB PO PRN (22:33)
[2016-11-05] VITALS (7 sets, daily range): BP systolic 77–204; BP diastolic 54–100; PULSE 71–76; RESP 17–22; TEMP 96.6–98.6; O2SAT 95–98
[2016-11-05] MEDS: ACETAMINOPHEN/HYDROcodone 325 MG/5 MG TAB PO PRN ×3 (05:32→20:31)
[2016-11-05] MEDS: MORPHINE SULFATE 4 MG/ML INJ IV PRN (05:33)
[2016-11-05] MEDS: SODIUM CHLOR 0.9% 1000 ML INJ 1,000 ML IV SCH ×3 (07:48→20:30)
[2016-11-05 07:54] LABS: AUTOMATED NEUTROPHIL # 5.6 TH/MM3 (1.8-7.7); BASOPHIL # 0.1 TH/MM3 (0-0.2); EOSINOPHIL # 0.2 TH/MM3 (0-0.4); EOSINOPHIL % 2.4 % (0.0-4.0); HEMATOCRIT 34.4 % (39.0-51.0); HEMO FLAGS DIFF FINAL; LYMPH % 22.4 % (9.0-44.0); MEAN CELL VOLUME 85.1 FL (80.0-100.0); MEAN CORPUSCULAR HEMOGLOBIN 29.5 PG (27.0-34.0); MEAN CORPUSCULAR HGB CONC 34.7 % (32.0-36.0); MONO % 11.4 % (0.0-8.0); NEUT % 62.8 % (16.0-70.0); PLATELET COUNT 379 TH/MM3 (150-450); RED BLOOD COUNT 4.04 MIL/MM3 (4.50-5.90); RED CELL DISTRIBUTION WIDTH 14.1 % (11.6-17.2)
[2016-11-05] MEDS: SODIUM CHLORIDE 0.9% FLUSH 10 ML FLUSH IV FLUSH SCH ×2 (08:18→20:31)
[2016-11-05 08:26] LABS: ALKALINE PHOSPHATASE 64 U/L (45-117); ALT (GPT) 28 U/L (12-78); ANION GAP 10 MEQ/L (5-15); AST (GOT) 40 U/L (15-37); BLOOD UREA NITROGEN 22 MG/DL (7-18); CHLORIDE 97 MEQ/L (98-107); CREATINE KINASE 233 U/L (39-308); GLOMERULAR FILTRATION RATE 88 ML/MIN (>89); POTASSIUM 3.8 MEQ/L (3.5-5.1); SODIUM (NA) 131 MEQ/L (136-145); TOTAL BILIRUBIN ADULT 0.6 MG/DL (0.2-1.0)
[2016-11-05] MEDS ORDERED: ACETAMINOPHEN/HYDROcodone 325 MG/5 MG TAB PO PRN (11:15)
[2016-11-05] MEDS: FLUDROCORTISONE ACETATE 0.1 MG TAB PO SCH (12:13)
--- NOTE | 2016-11-05 12:44 | HHI.PR ---
Subjective Remarks Follow up dizziness. Patient still complaints of dizziness upon standing. Denies any associated symptoms including nausea, vomiting, vomiting, shortness of breath, or chest pain. Patient does admit to having a cold a couple weeks ago and since then has felt generally weak. He also complains of lower back pain since his cold, preventing him from sleeping well. He is taking over-the- counter ibuprofen, with little relief. Admits to tobacco history, educated on cessation. Denies any alcohol use. Afebrile. Objective Vitals Vital Signs Date Time Temp Pulse Resp B/P Pulse Ox O2 Delivery O2 Flow Rate FiO2 11/05/16 12:00 96.6 73 17 93/54 98 111/62 77/61 11/05/16 08:00 96.7 71 17 174/88 95 11/05/16 04:16 98.6 74 22 158/89 95 11/05/16 00:33 194/96 115/75 98/60 11/05/16 00:00 73 11/04/16 21:09 104 18 100/57 11/04/16 21:05 81 16 126/58 11/04/16 21:03 74 18 185/91 11/04/16 18:09 76 15 221/102 77 15 231/92 11/04/16 17:04 98.4 79 17 150/84 97 I/O 11/04/16 11/04/16 11/04/16 11/05/16 11/05/16 11/05/16 07:00 15:00 23:00 07:00 15:00 23:00 Intake Total 587 ml Balance 587 ml Intake IV Total 587 ml Result Diagram: 11/05/16 0725 11/05/16 0725 Imaging Last Impressions Head CT 11/04/16 1716 Signed Impressions: Service Date/Time: Friday, November 04, 2016 19:07 - CONCLUSION: Normal examination. Nadeem Beatty MD CT Angiography 11/04/16 0000 Signed Impressions: Service Date/Time: Friday, November 04, 2016 19:14 - CONCLUSION: No evidence of pulmonary embolism Nadeem Beatty MD Abdomen/Pelvis CT 11/04/16 0000 Signed Impressions: Service Date/Time: Friday, November 04, 2016 19:14 - CONCLUSION: Primarily fatty density mass in the left retroperitoneum has a relatively benign appearance, however followup to document stability would be suggested. No definite acute CT findings in the abdomen or pelvis. Nadeem Beatty MD Objective Remarks GENERAL: Well-nourished, well-developed patient in NAD. SKIN: Warm and dry. No rash. HEENT: Normocephalic. Atraumatic. Pupils equal and round. No scleral icterus. Mucous membranes pink and moist. NECK: Supple. Trachea midline. CARDIOVASCULAR: Regular rate and rhythm. S1, S2 noted. No murmur appreciated. RESPIRATORY: No accessory muscle use. Clear to auscultation. Breath sounds equal bilaterally. GASTROINTESTINAL: Abdomen soft, non-tender, nondistended. Normoactive bowel sounds x4. MUSCULOSKELETAL: No obvious deformities. Extremities without clubbing, cyanosis , or edema. NEUROLOGICAL: Awake and alert. No obvious cranial nerve deficits. Motor grossly within normal limits. 5/5 muscle strength in bilateral upper and lower extremities. Normal speech. EXTREMITIES: Subjective information includes a history of AAA repair in 2013, since then has complained of tingling in bilateral feet. Bilateral DP pulses 2+ , bilateral lower extremities warm to touch and normal color. PSYCHIATRIC: Appropriate mood and affect; insight and judgment normal. Urinary Catheter: No Vascular Central Line Catheter: No A/P Problem List: (1) Rhabdomyolysis ICD Code: M62.82 Status: Acute (2) Abdominal mass ICD Code: R19.00 Status: Acute (3) Tobacco abuse ICD Code: Z72.0 Status: Acute Assessment and Plan Mr. Zelaya is a 75-year-old male with a known history of hypertension and AAA repair in 2013 who presents to the ED with dizziness for two days. Dizziness secondary to orthostatic hypotension versus dehydration: CT report reviewed, no evidence of PE. Consult PT, evaluate and treat. Educated patient on importance of increasing fluid intake and getting up slowly from a lying to sitting to standing position. Leukocytosis: Initially WBC 12.4, now 9.0. Afebrile. Continue IV fluids. Encourage by mouth intake. Hyponatremia: Initially sodium 129, now 131, monitor closely. Orthostatic hypotension: Start Florinef 0.1 mg PO daily. Orthostatic blood pressures to six hours. Back pain: [place] as needed for pain. Pain scale. History of tobacco use: Educated on cessation DVT prophylaxis: SCDs/TEDs Written by Citlalli Yanes, acting as scribe for Dr. Koehler on 11/05/16 at 12: 42. This note was transcribed by scribe Citlalli Yanes. I, Dr. Elsie Koehler personally performed the history, physical exam, and medical decision making; and confirmed the accuracy of the information in the transcribed note. Authenticated by Dr. Elsie Koehler on 11/05/16 at 20:41. Citlalli Yanes Nov 05, 2016 12:44 Elsie Koehler MD Nov 05, 2016 20:41
--- NOTE | 2016-11-05 16:04 | EKG ---
Date Performed: 11/04/2016 Time Performed: 18:08:25 PTAGE: 75 years EKG: Sinus rhythm PROLONGED QT INTERVAL ABNORMAL ECG PREVIOUS TRACING : 11/03/2016 12.01 Compared to previous tracing, QT interval slightly more pro longed, otherwise no significant change DOCTOR: Manish Burk Interpretating Date/Time 11/05/2016 16:04:14
[2016-11-05] MEDS: DOCUSATE SODIUM 100 MG CAP PO SCH (20:30)
[2016-11-06 00:05] VITALS: BP 167/102; PULSE 84; RESP 17; TEMP 98.5; O2SAT 97
[2016-11-06 03:45] VITALS: BP 184/99; PULSE 74; RESP 16; TEMP 97.9; O2SAT 98
[2016-11-06 08:00] VITALS: BP_SYST 149; BP_SYST 87; BP_DIAS 63; BP_DIAS 85; PULSE 88; RESP 18; TEMP 96.8; O2SAT 96
[2016-11-06] MEDS: FLUDROCORTISONE ACETATE 0.1 MG TAB PO SCH (08:39)
[2016-11-06] MEDS: DOCUSATE SODIUM 100 MG CAP PO SCH ×2 (08:39→20:49)
[2016-11-06] MEDS: SODIUM CHLORIDE 0.9% FLUSH 10 ML FLUSH IV FLUSH SCH ×2 (08:40→20:49)
[2016-11-06] MEDS ORDERED: LACTULOSE SYRUP 20 GM/30 ML CUP PO PRN (11:15)
[2016-11-06] MEDS ORDERED: MAGNESIUM HYDROXIDE SUSP 30 ML CUP PO PRN (11:15)
--- NOTE | 2016-11-06 11:15 | HHI.PR ---
Subjective Remarks Follow up for dizziness. Patient states that back pain has improved with PRN [place]. Does admit sitting on side of bed with PT, but still complains of continued dizziness when getting up. Patient does state that he has been tolerating PO diet. Patient is concerned that he is getting more weak since he' s been unable to tolerate walking. Patient does state that he has not had a bowel movement for two weeks now. Spoke to RN at length about his inability to do activity without becoming dizzy, shaky and tachycardic. Denies any further nausea and vomiting. Denies any fever, cough and chest pain. Objective Vitals Vital Signs Date Time Temp Pulse Resp B/P Pulse Ox O2 Delivery O2 Flow Rate FiO2 11/06/16 03:45 97.9 74 16 184/99 98 11/06/16 00:05 98.5 84 17 167/102 97 11/05/16 19:45 98.1 76 18 182/98 98 158/87 101/69 11/05/16 16:00 96.6 71 18 172/88 97 110/78 186/90 204/100 11/05/16 12:00 96.6 73 17 93/54 98 111/62 77/61 I/O 11/05/16 11/05/16 11/05/16 11/06/16 11/06/16 11/06/16 07:00 15:00 23:00 07:00 15:00 23:00 Intake Total 587 ml 480 ml 720 ml 240 ml Output Total 800 ml 600 ml Balance 587 ml 480 ml -80 ml -360 ml Intake Oral 480 ml 720 ml 240 ml IV Total 587 ml Output Urine Total 800 ml 600 ml # Voids 4 # Bowel Movements 0 Result Diagram: 11/05/16 0725 11/05/16 0725 Imaging Last Impressions Head CT 11/04/16 1716 Signed Impressions: Service Date/Time: Friday, November 04, 2016 19:07 - CONCLUSION: Normal examination. Nadeem Beatty MD CT Angiography 11/04/16 0000 Signed Impressions: Service Date/Time: Friday, November 04, 2016 19:14 - CONCLUSION: No evidence of pulmonary embolism Nadeem Beatty MD Abdomen/Pelvis CT 11/04/16 0000 Signed Impressions: Service Date/Time: Friday, November 04, 2016 19:14 - CONCLUSION: Primarily fatty density mass in the left retroperitoneum has a relatively benign appearance, however followup to document stability would be suggested. No definite acute CT findings in the abdomen or pelvis. Nadeem Beatty MD Objective Remarks GENERAL: Well-nourished, well-developed patient in NAD. SKIN: Warm and dry. No rash. HEENT: Normocephalic. Atraumatic. Pupils equal and round. No scleral icterus. Mucous membranes pink and moist. NECK: Supple. Trachea midline. CARDIOVASCULAR: Regular rate and rhythm. S1, S2 noted. No murmur appreciated. RESPIRATORY: No accessory muscle use. Clear to auscultation. Breath sounds equal bilaterally. GASTROINTESTINAL: Abdomen soft, non-tender, nondistended. Normoactive bowel sounds x4. MUSCULOSKELETAL: No obvious deformities. Extremities without clubbing, cyanosis , or edema. NEUROLOGICAL: Awake and alert. No obvious cranial nerve deficits. Motor grossly within normal limits. 5/5 muscle strength in bilateral upper and lower extremities. Normal speech. EXTREMITIES: Subjective information includes a history of AAA repair in 2013, since then has complained of tingling in bilateral feet, continued. Bilateral DP pulses 2+, bilateral lower extremities warm to touch and normal color. PSYCHIATRIC: Appropriate mood and affect; insight and judgment normal. Urinary Catheter: No Vascular Central Line Catheter: No A/P Problem List: (1) Rhabdomyolysis ICD Code: M62.82 Status: Acute (2) Abdominal mass ICD Code: R19.00 Status: Acute (3) Tobacco abuse ICD Code: Z72.0 Status: Acute Assessment and Plan Mr. Zelaya is a 75-year-old male with a known history of hypertension and AAA repair in 2013 who presents to the ED with dizziness for two days. Dizziness secondary to orthostatic hypotension versus dehydration: CT report reviewed, no evidence of PE. Continue PT. Educated patient on importance of increasing fluid intake and getting up slowly from a lying to sitting to standing position. Continue IVF. Leukocytosis: Initially WBC 12.4, recheck today. Afebrile. Continue IV fluids. Encourage by mouth intake. Hyponatremia: Initially sodium 129, BMP today. Monitor closely. Orthostatic hypotension: Continue Florinef 0.1 mg PO daily. Orthostatic blood pressures to six hours. Generalized weakness secondary to dizziness: Patient has been unable to even stand without becoming dizzy and shaking. Continued PT. Back pain: Patient states that pain is improved. [place] as needed for pain. Pain scale. Constipation: Will continue scheduled [place]. Will add lactulose x 1 now and PRN. Encourage out of bed as tolerated. History of tobacco use: Educated on cessation DVT prophylaxis: SCDs/TEDs Discharge Planning The exam, history, and the medical decision-making described in the above note were completed with the assistance of the mid-level provider. I reviewed and agree with the findings presented. I attest that I had a [id number] encounter with the patient on the same day, and personally performed and documented my assessment and findings in the medical record. patient asking if a home made pesticide made from worm fertilizer, that a friend made and gave him to spray on plants, could have caused his symptoms. patient has a friend on the phone who is a nurse; the nurse is asking me if other patients in the hospital are suffering from similar symptoms to the patient. patient not aware of what chemicals were used in the pesticide. I informed patient I am not aware of any epidemic of orthostatic hypotension associated with home made pesticide use. Patient counseled on orthostatic hypotension. Starting midodrine. Citlalli Yanes Nov 06, 2016 11:15 Elsie Koehler MD Nov 06, 2016 15:59
[2016-11-06 12:00] VITALS: BP_SYST 105; BP_SYST 193; BP_SYST 77; BP_DIAS 107; BP_DIAS 59; BP_DIAS 70; PULSE 91; RESP 18; TEMP 97.2; O2SAT 93
[2016-11-06] MEDS ORDERED: MAGNESIUM HYDROXIDE SUSP 30 ML CUP PO ONE (12:15)
[2016-11-06] MEDS ORDERED: LACTULOSE SYRUP 20 GM/30 ML CUP PO ONE (12:15)
[2016-11-06] MEDS ORDERED: MIDODRINE 5 MG TAB PO ONE (13:15)
[2016-11-06] MEDS: SODIUM CHLOR 0.9% 1000 ML INJ 1,000 ML IV SCH ×2 (14:04→20:50)
--- NOTE | 2016-11-06 14:32 | HHI.PR ---
Subjective Remarks patient asking if a home made pesticide made from worm fertilizer, that a friend made and gave him to spray on plants, could have caused his symptoms. patient has a friend on the phone who is a nurse; the nurse is asking me if other patients in the hospital are suffering from similar symptoms to the patient. patient not aware of what chemicals were used in the pesticide. Objective Vitals Vital Signs Date Time Temp Pulse Resp B/P Pulse Ox O2 Delivery O2 Flow Rate FiO2 11/06/16 12:00 97.2 91 18 193/107 93 105/70 77/59 11/06/16 08:00 96.8 88 18 149/85 96 87/63 11/06/16 03:45 97.9 74 16 184/99 98 11/06/16 00:05 98.5 84 17 167/102 97 11/05/16 19:45 98.1 76 18 182/98 98 158/87 101/69 11/05/16 16:00 96.6 71 18 172/88 97 110/78 186/90 204/100 I/O 11/05/16 11/05/16 11/05/16 11/06/16 11/06/16 11/06/16 07:00 15:00 23:00 07:00 15:00 23:00 Intake Total 587 ml 480 ml 720 ml 240 ml Output Total 800 ml 600 ml 1 ml Balance 587 ml 480 ml -80 ml -360 ml -1 ml Intake Oral 480 ml 720 ml 240 ml IV Total 587 ml Output Urine Total 800 ml 600 ml Stool Total 1 ml # Voids 4 # Bowel Movements 0 Result Diagram: 11/05/16 0725 11/05/16 0725 A/P Problem List: (1) Rhabdomyolysis ICD Code: M62.82 Status: Acute (2) Abdominal mass ICD Code: R19.00 Status: Acute (3) Tobacco abuse ICD Code: Z72.0 Status: Acute Assessment and Plan Mr. Zelaya is a 75-year-old male with a known history of hypertension and AAA repair in 2013 who presents to the ED with dizziness for two days. Dizziness secondary to orthostatic hypotension versus dehydration: CT report reviewed, no evidence of PE. Consult PT, evaluate and treat. Educated patient on importance of increasing fluid intake and getting up slowly from a lying to sitting to standing position. Leukocytosis: Initially WBC 12.4, now 9.0. Afebrile. Continue IV fluids. Encourage by mouth intake. Hyponatremia: Initially sodium 129, now 131, monitor closely. Orthostatic hypotension: Start Florinef 0.1 mg PO daily. Orthostatic blood pressures to six hours. Back pain: [place] as needed for pain. Pain scale. History of tobacco use: Educated on cessation DVT prophylaxis: SCDs/TEDs Written by Citlalli Yanes, acting as scribe for Dr. Koehler on 11/05/16 at 12: 42. This note was transcribed by scribe Citlalli Yanes. I, Dr. Elsie Koehler personally performed the history, physical exam, and medical decision making; and confirmed the accuracy of the information in the transcribed note. Authenticated by Dr. Elsie Koehler on 11/05/16 at 20:41. Elsie Koehler MD Nov 06, 2016 14:32
[2016-11-06 15:10] LABS: AUTOMATED NEUTROPHIL # 7.6 TH/MM3 (1.8-7.7); BASOPHIL % 0.5 % (0.0-2.0); EOSINOPHIL # 0.3 TH/MM3 (0-0.4); HEMATOCRIT 36.5 % (39.0-51.0); HEMO FLAGS DIFF FINAL; LYMPH % 15.2 % (9.0-44.0); LYMPHOCYTE # 1.6 TH/MM3 (1.0-4.8); MEAN CELL VOLUME 85.7 FL (80.0-100.0); MEAN CORPUSCULAR HEMOGLOBIN 29.7 PG (27.0-34.0); MEAN CORPUSCULAR HGB CONC 34.6 % (32.0-36.0); MONO % 10.9 % (0.0-8.0); NEUT % 70.4 % (16.0-70.0); PLATELET COUNT 355 TH/MM3 (150-450); RED BLOOD COUNT 4.27 MIL/MM3 (4.50-5.90); WHITE BLOOD COUNT 10.8 TH/MM3 (4.0-11.0)
[2016-11-06 16:00] VITALS: BP_SYST 112; BP_SYST 115; BP_SYST 147; BP_DIAS 68; BP_DIAS 75; BP_DIAS 78; PULSE 82; RESP 18; TEMP 97.7; O2SAT 97
[2016-11-06] MEDS: MIDODRINE 5 MG TAB PO SCH (20:49)
[2016-11-06 21:00] VITALS: BP_SYST 156; BP_SYST 158; BP_DIAS 73; BP_DIAS 83; PULSE 83; RESP 18; TEMP 97.4; O2SAT 93
[2016-11-06] MEDS: ACETAMINOPHEN/HYDROcodone 325 MG/5 MG TAB PO PRN (23:51)
[2016-11-07] VITALS (7 sets, daily range): BP systolic 97–184; BP diastolic 62–98; PULSE 67–78; RESP 16–20; TEMP 96.2–98.7; O2SAT 92–98
[2016-11-07] MEDS ORDERED: MORPHINE SULFATE 4 MG/ML INJ IV PUSH ONE (02:45)
[2016-11-07] MEDS: MIDODRINE 5 MG TAB PO SCH ×3 (06:40→22:25)
[2016-11-07] MEDS: FLUDROCORTISONE ACETATE 0.1 MG TAB PO SCH (08:17)
[2016-11-07] MEDS: ACETAMINOPHEN/HYDROcodone 325 MG/5 MG TAB PO PRN ×4 (08:17→22:25)
[2016-11-07] MEDS: DOCUSATE SODIUM 100 MG CAP PO SCH ×2 (08:17→22:25)
[2016-11-07] MEDS: SODIUM CHLORIDE 0.9% FLUSH 10 ML FLUSH IV FLUSH SCH ×2 (08:20→22:25)
[2016-11-07] MEDS: SODIUM CHLOR 0.9% 1000 ML INJ 1,000 ML IV SCH ×2 (08:27→22:26)
[2016-11-07] MEDS ORDERED: FLUD.1 PO (13:56)
[2016-11-07] MEDS ORDERED: MIDO5TAB PO (13:56)
--- NOTE | 2016-11-07 13:56 | HHI.DCPOC ---
Discharge Care Plan Diagnosis: (1) Orthostatic hypotension (2) Dehydration Goals to Promote Your Health * To prevent worsening of your condition and complications * To maintain your health at the optimal level Directions to Meet Your Goals Take your medications as prescribed Follow your dietary instruction Follow activity as directed Keep your appointments as scheduled Take your immunizations and boosters as scheduled If your symptoms worsen call your PCP, if no PCP go to Urgent Care Center or Emergency Room Smoking is Dangerous to Your Health. Avoid second hand smoke Call the 24-hour hour crisis hotline for domestic abuse at Radha Zepeda PA-C Nov 07, 2016 1:56 pm
--- NOTE | 2016-11-07 14:48 | HHI.FF ---
Face to Face Verification Diagnosis: (1) Orthostatic hypotension (2) Dehydration (3) Weakness Physical Therapy Order: Evaluate and Treat Home Health Nursing Order: Medical education Nursing assessment with vital signs I have seen patient Art Slater on 11/07/16. My clinical findings support the need for the requested home health care services because: Need for psychosocial assistance High risk of falls I certify that my clinical findings support that this patient is homebound because: Unsteady gait/balance Need for psychosocial assistance Elsie Koehler MD Nov 07, 2016 14:48
--- NOTE | 2016-11-07 14:58 | HHI.PR ---
Subjective Remarks Follow up for dizziness. Patient states he tolerated PT today, he did have one episode of vomiting which he states he drank a lot of water and laid down prior. He currently denies any nausea, vomiting, or dizziness. He does not want to go home today, he states he would feel better if he is discharged tomorrow. He states he lives alone and has a hard time going up the 3 stairs to get in his house. Objective Vitals Vital Signs Date Time Temp Pulse Resp B/P Pulse Ox O2 Delivery O2 Flow Rate FiO2 11/07/16 12:00 96.2 78 18 148/81 98 145/84 138/74 11/07/16 09:23 18 11/07/16 08:00 96.5 76 18 165/95 95 138/65 97/62 11/07/16 04:00 98.0 75 20 168/78 96 11/07/16 03:10 68 16 158/71 96 11/07/16 02:50 18 11/07/16 00:00 97.3 67 20 184/98 95 11/06/16 21:00 97.4 83 18 158/83 93 156/73 11/06/16 16:00 97.7 82 18 147/78 97 112/68 115/75 I/O 11/06/16 11/06/16 11/06/16 11/07/16 11/07/16 11/07/16 07:00 15:00 23:00 07:00 15:00 23:00 Intake Total 240 ml 720 ml 514 ml Output Total 600 ml 1 ml 600 ml Balance -360 ml 719 ml -86 ml Intake Oral 240 ml 720 ml IV Total 514 ml Output Urine Total 600 ml 600 ml Stool Total 1 ml # Voids 3 # Bowel Movements 1 Result Diagram: 11/06/16 1439 11/06/16 1439 Objective Remarks GENERAL: Well-nourished, well-developed patient in NAD. SKIN: Warm and dry. No rash. HEENT: Normocephalic. Atraumatic. Pupils equal and round. No scleral icterus. NECK: Supple. Trachea midline. CARDIOVASCULAR: Regular rate and rhythm. S1, S2 noted. No murmur appreciated. RESPIRATORY: No accessory muscle use. Clear to auscultation. Breath sounds equal bilaterally. GASTROINTESTINAL: Abdomen soft, non-tender, nondistended. Normoactive bowel sounds x4. MUSCULOSKELETAL: No obvious deformities. Extremities without clubbing, cyanosis , or edema. NEUROLOGICAL: Awake and alert. No obvious cranial nerve deficits. Motor grossly within normal limits. Normal speech. EXTREMITIES: No edema noted. PSYCHIATRIC: Appropriate mood and affect; insight and judgment normal. Medications and IVs Current Medications Medications (Trade) Dose Ordered Sig/Deisy Route Start Time Stop Time Status Last Admin (NS 1000 ml Inj) 1,000 ml @ 100 mls/hr Q10H IV 11/04/16 21:48 11/07/16 08:27 (NS Flush) 2 ml UNSCH PRN IV FLUSH 11/04/16 22:00 (NS Flush) 2 ml BID IV FLUSH 11/05/16 09:00 11/07/16 08:20 (Zofran Inj) 4 mg Q6H PRN IVP 11/04/16 22:00 11/04/16 22:32 (Dulcolax Supp) 10 mg DAILY PRN RECTAL 11/04/16 22:00 (Tylenol) 650 mg Q6H PRN PO 11/04/16 22:00 ([place] 5-325 Mg) 1 tab Q4H PRN PO 11/04/16 22:00 11/07/16 13:10 (Florinef) 0.1 mg DAILY PO 11/05/16 11:15 11/07/16 08:17 ([place] 5-325 Mg) 1 tab Q4H PRN PO 11/05/16 11:15 (Colace) 100 mg BID PO 11/05/16 21:00 11/07/16 08:17 (Catapres) 0.1 mg Q6H PRN PO 11/05/16 11:15 (Lactulose Liq) 30 ml TID PRN PO 11/06/16 11:15 (Proamatine) 5 mg Q8HR PO 11/06/16 22:00 11/07/16 06:40 Urinary Catheter: No Vascular Central Line Catheter: No A/P Problem List: (1) Rhabdomyolysis ICD Code: M62.82 Status: Resolved (2) Abdominal mass ICD Code: R19.00 Status: Acute (3) Tobacco abuse ICD Code: Z72.0 Status: Chronic Assessment and Plan Mr. Zelaya is a 75-year-old male with a known history of hypertension and AAA repair in 2013 who presents to the ED with dizziness for two days. Dizziness secondary to orthostatic hypotension versus dehydration: CT report reviewed, no evidence of PE. Continue PT. Educated patient on importance of increasing fluid intake and getting up slowly from a lying to sitting to standing position. Continue IVF. Resolving. PT recommends rehab. Consult Case management. Leukocytosis: Initially WBC 12.4, 10.8 today. Afebrile. Continue IV fluids. Encourage by mouth intake. Resolving. Hyponatremia: Initially sodium 129,today 131. Monitor closely. Orthostatic hypotension: Discontinue Florinef 0.1 mg PO daily. Cont midodrine. Cont Orthostatic blood pressures to six hours. Generalized weakness secondary to dizziness: Improving, patient denies dizziness today. Continued PT. Back pain: Patient states that pain is improved. [place] as needed for pain. Pain scale. Constipation: Will continue scheduled Colace. Cont lactulose PRN. Encourage out of bed as tolerated. History of tobacco use: Educated on cessation DVT prophylaxis: SCDs/TEDs Written by SHOBHA Jhaveri acting as scribe for Dr. Koehler on 11/07/16 at 14: 37 Attending Statement This note was transcribed by scribe. I, Dr. Elsie Koehler personally performed the history, physical exam, and medical decision making; and confirmed the accuracy of the information in the transcribed note. Authenticated by Dr. Elsie Koehler on 11/08/16 at 18:18. Silvia Hurtado Nov 07, 2016 14:58 Elsie Koehler MD Nov 08, 2016 18:18
[2016-11-08] VITALS (12 sets, daily range): BP systolic 93–191; BP diastolic 64–109; PULSE 61–94; RESP 18–20; TEMP 97.3–98.8; O2SAT 93–100
[2016-11-08] MEDS: cloNIDine HCL 0.1 MG TAB PO PRN (04:21)
[2016-11-08] MEDS: SODIUM CHLOR 0.9% 1000 ML INJ 1,000 ML IV SCH ×2 (05:48→14:47)
[2016-11-08] MEDS: MIDODRINE 5 MG TAB PO SCH ×3 (05:57→21:32)
[2016-11-08 06:59] LABS: BASOPHIL % 0.4 % (0.0-2.0); EOSINOPHIL # 0.4 TH/MM3 (0-0.4); EOSINOPHIL % 5.4 % (0.0-4.0); HEMATOCRIT 35.8 % (39.0-51.0); HEMO FLAGS DIFF FINAL; LYMPH % 23.9 % (9.0-44.0); LYMPHOCYTE # 1.9 TH/MM3 (1.0-4.8); MEAN CELL VOLUME 87.1 FL (80.0-100.0); MEAN CORPUSCULAR HEMOGLOBIN 28.9 PG (27.0-34.0); MEAN CORPUSCULAR HGB CONC 33.1 % (32.0-36.0); MONO % 9.2 % (0.0-8.0); NEUT % 61.1 % (16.0-70.0); PLATELET COUNT 353 TH/MM3 (150-450); RED BLOOD COUNT 4.11 MIL/MM3 (4.50-5.90); RED CELL DISTRIBUTION WIDTH 13.6 % (11.6-17.2)
[2016-11-08 07:02] LABS: POTASSIUM 3.9 MEQ/L (3.5-5.1)
[2016-11-08 07:06] LABS: BICARBONATE 28.8 MEQ/L (21.0-32.0)
[2016-11-08] MEDS: FLUDROCORTISONE ACETATE 0.1 MG TAB PO SCH (08:57)
[2016-11-08] MEDS: SODIUM CHLORIDE 0.9% FLUSH 10 ML FLUSH IV FLUSH SCH ×2 (08:58→21:00)
[2016-11-08] MEDS: DOCUSATE SODIUM 100 MG CAP PO SCH ×2 (08:58→21:31)
[2016-11-08] MEDS: ACETAMINOPHEN/HYDROcodone 325 MG/5 MG TAB PO PRN ×2 (08:58→21:32)
--- NOTE | 2016-11-08 12:44 | HHI.PR ---
Subjective Remarks Follow-up for orthostatic dizziness. The patient complains of feeling tired. He also has some back pain. He states that earlier today he had an episode of vomiting after sitting up. Denies any further nausea at this time. He denies any dizziness today. He states he has been able to walk some using a walker with assistance from PT. Objective Vitals Vital Signs Date Time Temp Pulse Resp B/P Pulse Ox O2 Delivery O2 Flow Rate FiO2 11/08/16 12:08 94 139/75 11/08/16 12:03 76 139/72 11/08/16 12:00 97.3 78 20 149/78 100 11/08/16 10:26 18 11/08/16 08:06 94 93/64 11/08/16 08:03 74 103/64 11/08/16 08:00 98.0 73 20 152/82 93 11/08/16 04:00 98.1 82 20 186/109 95 11/08/16 00:00 98.8 71 18 167/94 96 11/07/16 20:00 98.7 75 18 116/73 92 11/07/16 16:00 97.5 71 18 133/76 96 121/63 110/63 I/O 11/07/16 11/07/16 11/07/16 11/08/16 11/08/16 11/08/16 07:00 15:00 23:00 07:00 15:00 23:00 Intake Total 514 ml 480 ml 700 ml Output Total 600 ml Balance -86 ml 480 ml 700 ml Intake Oral 480 ml IV Total 514 ml 700 ml Output Urine Total 600 ml # Voids 3 # Bowel Movements 0 Result Diagram: 11/08/16 0527 11/08/16 0527 Imaging Last Impressions Head CT 11/04/16 1716 Signed Impressions: Service Date/Time: Friday, November 04, 2016 19:07 - CONCLUSION: Normal examination. Nadeem Beatty MD CT Angiography 11/04/16 0000 Signed Impressions: Service Date/Time: Friday, November 04, 2016 19:14 - CONCLUSION: No evidence of pulmonary embolism Nadeem Beatty MD Abdomen/Pelvis CT 11/04/16 0000 Signed Impressions: Service Date/Time: Friday, November 04, 2016 19:14 - CONCLUSION: Primarily fatty density mass in the left retroperitoneum has a relatively benign appearance, however followup to document stability would be suggested. No definite acute CT findings in the abdomen or pelvis. Nadeem Beatty MD Objective Remarks GENERAL: Well-developed well-nourished. In no acute distress. SKIN: Warm and dry. Healed scabs on the lower extremities from previous falls. HEENT: Normocephalic. Pupils equal and round. Mucous membranes pink and moist. CARDIOVASCULAR: Regular rate and rhythm. No murmur appreciated. RESPIRATORY: No accessory muscle use. Clear to auscultation. Breath sounds equal bilaterally. GASTROINTESTINAL: Abdomen soft, non-tender, nondistended. Bowel sounds x4. MUSCULOSKELETAL: No obvious deformities. No clubbing or cyanosis. No edema. NEUROLOGICAL: Awake and alert. No focal neurological deficits. Moves upper and lower extremities spontaneously. Normal speech. PSYCHIATRIC: Appropriate mood and affect; insight and judgment normal. A/P Problem List: (1) Rhabdomyolysis ICD Code: M62.82 Status: Resolved (2) Abdominal mass ICD Code: R19.00 Status: Acute (3) Tobacco abuse ICD Code: Z72.0 Status: Chronic Assessment and Plan Mr. Zelaya is a 75-year-old male with a known history of hypertension and AAA repair in 2013 who presents to the ED with dizziness for two days. Dizziness secondary to orthostatic hypotension versus dehydration: CT report reviewed, no evidence of PE. Continue PT. Encouraged oral intake and sleep position changes. Continue IVF. Orthostatic treatment as below. 11/08 patient remains orthostatic with symptomatic vomiting. Check echocardiogram and TSH. Add SANDRA hose and abdominal binder. Leukocytosis: Initially WBC 12.4, improved to normal limits. Afebrile. Resolved. Hyponatremia: Initially sodium 129, improved to 137. Resolved. Orthostatic hypotension: Continue Florinef 0.1 mg PO daily and midodrine. Cont Orthostatic blood pressures every six hours. Fall precautions. Generalized weakness secondary to dizziness: Improving. Continued PT. PT recommends rehab. Consulted Case management. Back pain: Patient states that pain is improved. [place] as needed. Constipation: Will continue scheduled Colace. Cont lactulose PRN. Encourage out of bed as tolerated. History of tobacco use: Educated on cessation Retroperitoneal mass: Primarily fatty density mass in the left retroperitoneum incidentally seen on abdominal CT, has relatively benign appearance, follow-up imaging to document stability suggested. DVT prophylaxis: SCDs/TEDs Written by Ramon Bernal, acting as scribe for Dr. Jhaveri on 11/08/16 at 12:42. This note was transcribed by scribe []. I, Dr. Ricky Jhaveri personally performed the history, physical exam, and medical decision making; and confirmed the accuracy of the information in the transcribed note. Authenticated by Dr. Ricky Jhaveri on 11/08/16 at 21:43. Discharge Planning Discharge planning to SNF vs home with HHC depending on progress. Ramon Bernal Nov 08, 2016 12:44 Ricky Jhaveri MD Nov 08, 2016 21:43
--- NOTE | 2016-11-08 16:46 | EC ---
Study Study Date:11/08/2016 STUDY CONCLUSIONS SUMMARY - Left ventricle: The cavity size was normal. Wall thickness was normal. Systolic function was mildly to moderately reduced. The estimated ejection fraction was in the range of 40% to 45%. Diffuse hypokinesis. - Aortic valve: Valve area: 2.16cm^2 (Vmax). - Mitral valve: Mild regurgitation. If LV function is below 40, please consider prescribing an ACEI or ARB or document rationale for non-use. PROCEDURE DATA STUDY STATUS: Elective. Procedure: Transthoracic echocardiography. Image quality was good. Scanning was performed from the parasternal, apical, and subcostal acoustic windows. Study completion: The patient tolerated the procedure well. Transthoracic echocardiography. M-mode, complete 2D, complete spectral Doppler, and color Doppler. Height: Height: 72in. Weight: Weight: 166.7lb. Body mass index: BMI: 22.6kg/m^2. Body surface area: BSA: 1.97m^2. Patient status: Inpatient. CARDIAC ANATOMY LEFT VENTRICLE: The cavity size was normal. Wall thickness was normal. Systolic function was mildly to moderately reduced. The estimated ejection fraction was in the range of 40% to 45%. Diffuse hypokinesis. AORTIC VALVE: Trileaflet; normal thickness leaflets. Doppler: Transvalvular velocity was within the normal range. There was no stenosis. No regurgitation. Valve area: 2.16cm^2 (Vmax). Indexed valve area: 1.1cm^2/m^2 (Vmax). AORTA: Aortic root: The aortic root was normal in size. MITRAL VALVE: Structurally normal valve. Doppler: Transvalvular velocity was within the normal range. There was no evidence for stenosis. Mild regurgitation. LEFT ATRIUM: The atrium was normal in size. RIGHT VENTRICLE: The cavity size was normal. Wall thickness was normal. PULMONIC VALVE: Doppler: Transvalvular velocity was within the normal range. There was no evidence for stenosis. No regurgitation. TRICUSPID VALVE: Structurally normal valve. Doppler: Transvalvular velocity was within the normal range. No regurgitation. PULMONARY ARTERY: The main pulmonary artery was normal-sized. Systolic pressure was within the normal range. RIGHT ATRIUM: The atrium was normal in size. PERICARDIUM: There was no pericardial effusion. SYSTEMIC VEINS: Inferior vena cava: The vessel was normal in size. Patient weight: 166.7lb _Ejection fraction:_ 65-75% _Fractional shortening:_ 32% up to 5Kg 5-11.5Kg 11.6-22.9Kg 23-45Kg 45-57Kg Aortic Root 7-13 <17 13-22 17-27 17-27 LA diam 6-13 <23 24-38 33-47 37-40 RVID 10-17 7-15 7-15 7-18 8-17 LVIDd 12-22 <32 24-38 33-47 37-40 LVPW 2-4 3-6 5-7 6-8 7-8 IVS 2-4 3-6 5-7 6-8 7-8 BASIC MEASUREMENTS ADULT NORMAL Left ventricle LV internal dimension, ED, chordal 48.8 mm 43-52 level, PLAX LV internal dimension, ES, chordal *40.4 mm 23-38 level, PLAX Fractional shortening, chordal level, *17 % >29 PLAX LV posterior wall thickness, ED 10.3 mm IVS/LVPW ratio, ED 0.97 <1.3 Ventricular septum Septal thickness, ED 10 mm Aortic valve Leaflet separation 15 mm 15-26 BASIC MEASUREMENTS ADULT NORMAL Aortic valve Leaflet separation 15 mm 15-26 Aorta Root diameter, ED 23 mm 20-37 Left atrium Anterior-posterior dimension, ES 36 mm 19-40 Anterior-posterior dimension index, ES 1.83 cm/m^2 <2.2 LA/aortic root ratio 1.57 DOPPLER MEASUREMENTS ADULT NORMAL Aortic valve Peak velocity, S 137 cm/s Valve area, Vmax 2.16 cm^2 Valve area index, Vmax 1.1 cm^2/m^2 Mitral valve Peak E-wave velocity 42.4 cm/s Peak A-wave velocity 68.6 cm/s Deceleration time *405 ms 150-230 Peak E/A ratio 0.6 Maximal regurgitant velocity 303 cm/s Pulmonic valve Peak velocity, S 98.4 cm/s LEGEND: Mean values are shown as u=mean value. Asterisk (*) ro values outside specified normal range. Prepared and signed by Ying Lock [id number]
[2016-11-09] VITALS: BP 185/99; PULSE 66; RESP 18; TEMP 97.9; O2SAT 94
[2016-11-09] MEDS: cloNIDine HCL 0.1 MG TAB PO PRN (00:18)
[2016-11-09] MEDS: SODIUM CHLOR 0.9% 1000 ML INJ 1,000 ML IV SCH (01:48)
[2016-11-09 04:00] VITALS: BP_SYST 110; BP_SYST 120; BP_SYST 140; BP_DIAS 64; BP_DIAS 70; BP_DIAS 76; PULSE 68; RESP 18; TEMP 97.9; O2SAT 96
[2016-11-09] MEDS: MIDODRINE 5 MG TAB PO SCH ×2 (05:28→14:00)
[2016-11-09 08:00] VITALS: BP_SYST 112; BP_SYST 129; BP_SYST 169; BP_DIAS 92; BP_DIAS 93; BP_DIAS 98; PULSE 72; RESP 18; TEMP 98.2; O2SAT 97
[2016-11-09] MEDS: FLUDROCORTISONE ACETATE 0.1 MG TAB PO SCH (08:37)
[2016-11-09] MEDS: SODIUM CHLORIDE 0.9% FLUSH 10 ML FLUSH IV FLUSH SCH (08:38)
[2016-11-09] MEDS: DOCUSATE SODIUM 100 MG CAP PO SCH (08:38)
--- NOTE | 2016-11-09 09:24 | HHI.PR ---
Subjective Remarks Follow-up orthostatic hypotension. Improving orthostasis denies any symptoms. Agrees to be discharged to rehabilitation discussed with case preparer and liner Objective Vitals Vital Signs Date Time Temp Pulse Resp B/P Pulse Ox O2 Delivery O2 Flow Rate FiO2 11/09/16 08:00 98.2 72 18 169/98 97 129/93 112/92 11/09/16 04:00 97.9 68 18 140/76 96 120/64 110/70 Manual Cuff/Palpation 11/09/16 00:00 97.9 66 18 185/99 94 11/08/16 20:00 98.1 66 20 191/102 96 159/95 160/93 11/08/16 20:00 69 11/08/16 16:06 90 144/84 11/08/16 16:03 67 160/97 11/08/16 16:00 98.3 61 20 184/94 98 11/08/16 12:08 94 139/75 11/08/16 12:03 76 139/72 11/08/16 12:00 97.3 78 20 149/78 100 11/08/16 10:26 18 I/O 11/08/16 11/08/16 11/08/16 11/09/16 11/09/16 11/09/16 07:00 15:00 23:00 07:00 15:00 23:00 Intake Total 700 ml 1780 ml 2661 ml 700 ml Output Total 800 ml 650 ml Balance 700 ml 980 ml 2661 ml 50 ml Intake Oral 980 ml 420 ml 700 ml IV Total 700 ml 800 ml 2241 ml 0 ml Output Urine Total 800 ml 650 ml # Voids 1 # Bowel Movements 0 0 Result Diagram: 11/08/16 0527 11/08/16 0527 Imaging Last Impressions Head CT 11/04/16 1716 Signed Impressions: Service Date/Time: Friday, November 04, 2016 19:07 - CONCLUSION: Normal examination. Nadeem Beatty MD CT Angiography 11/04/16 0000 Signed Impressions: Service Date/Time: Friday, November 04, 2016 19:14 - CONCLUSION: No evidence of pulmonary embolism Nadeem Beatty MD Abdomen/Pelvis CT 11/04/16 0000 Signed Impressions: Service Date/Time: Friday, November 04, 2016 19:14 - CONCLUSION: Primarily fatty density mass in the left retroperitoneum has a relatively benign appearance, however followup to document stability would be suggested. No definite acute CT findings in the abdomen or pelvis. Nadeem Beatty MD Objective Remarks GENERAL: Well-developed well-nourished. In no acute distress. SKIN: Warm and dry. Healed scabs on the lower extremities from previous falls. HEENT: Normocephalic. Pupils equal and round. Mucous membranes pink and moist. CARDIOVASCULAR: Regular rate and rhythm. No murmur appreciated. RESPIRATORY: No accessory muscle use. Clear to auscultation. Breath sounds equal bilaterally. GASTROINTESTINAL: Abdomen soft, non-tender, nondistended. Bowel sounds x4. MUSCULOSKELETAL: No obvious deformities. No clubbing or cyanosis. No edema. NEUROLOGICAL: Awake and alert. No focal neurological deficits. Moves upper and lower extremities spontaneously. Normal speech. Nonfocal PSYCHIATRIC: Appropriate mood and affect; insight and judgment normal. Procedures none A/P Problem List: (1) Rhabdomyolysis ICD Code: M62.82 Status: Resolved (2) Abdominal mass ICD Code: R19.00 Status: Acute (3) Tobacco abuse ICD Code: Z72.0 Status: Chronic Assessment and Plan Mr. Zelaya is a 75-year-old male with a known history of hypertension and AAA repair in 2013 who presents to the ED with dizziness for two days. Dizziness secondary to orthostatic hypotension versus dehydration: Improved currently asymptomatic. CT report reviewed, no evidence of PE. EF 40%. Continue PT. Encouraged oral intake and sleep position changes. Discontinue IVF. SANDRA hose and abdominal binder. Orthostatic treatment as below. Leukocytosis: Initially WBC 12.4, improved to normal limits. Afebrile. Resolved. Hyponatremia: Initially sodium 129, improved to 137. Resolved. Orthostatic hypotension: Continue Florinef 0.1 mg PO daily and midodrine. Cont Orthostatic blood pressures every six hours. Fall precautions. Generalized weakness secondary to dizziness: Improving. Continued PT. PT recommends rehab. Consulted Case management. Back pain: Patient states that pain is improved. [place] as needed. Constipation: Will continue scheduled Colace. Cont lactulose PRN. Encourage out of bed as tolerated. History of tobacco use: Educated on cessation Retroperitoneal mass: Primarily fatty density mass in the left retroperitoneum incidentally seen on abdominal CT, has relatively benign appearance, follow-up imaging to document stability suggested. DVT prophylaxis: SCDs/TEDs Discharge Planning Stable for discharge to rehabilitation Ricky Jhaveri MD Nov 09, 2016 09:24
[2016-11-09 12:00] VITALS: BP_SYST 137; BP_SYST 140; BP_SYST 141; BP_DIAS 77; BP_DIAS 80; BP_DIAS 85; PULSE 73; RESP 18; TEMP 98.2; O2SAT 95
[2016-11-09] MEDS ORDERED: HYDR-3516 PO (12:49)
--- NOTE | 2016-11-09 12:50 | HHI.DS ---
Discharge Summary Admission Date Nov 04, 2016 at 21:51 Discharge Date: Nov 09, 2016 Admitting Diagnosis symptomatic orthostatic hypotension, hyponatremia (1) Rhabdomyolysis ICD Code: M62.82 Diagnosis: Principal (2) Abdominal mass ICD Code: R19.00 Diagnosis: Principal (3) Tobacco abuse ICD Code: Z72.0 Diagnosis: Principal Procedures none Brief History - From Admission This is a 75-year-old male with a PMH of HTN, AAA Repair and Tobacco Abuse who presented to the ER with complaints of dizziness x2 days. Denies fever, chills , chest pain or SOB. Seen in ER on 11/03/16 for similar symptoms in addition to cough/cold symptoms, WBC 11.5, Na 129 at that time, s/p 2L IVF and d/c'd home w / outpatient follow up. Returns today w/ ongoing complaints. On arrival, BP 150/84, HR 79, O2 sat 97% on RA, Afebrile. WBC 12.4. Na 129. GFR 63. CT Head negative. CTA Pulm negative for PE. CT Abd/Pelvis w/ fatty density mass left retroperitoneum w/ benign appearance. +Orthostatic Vitals Signs s/p IVF in ER. CBC/BMP: 11/08/16 0527 11/08/16 0527 Significant Findings Laboratory Tests Test 11/06/16 11/08/16 14:39 05:27 Red Blood Count 4.27 MIL/MM3 4.11 MIL/MM3 (4.50-5.90) (4.50-5.90) Hemoglobin 12.6 GM/DL 11.9 GM/DL (13.0-17.0) (13.0-17.0) Hematocrit 36.5 % 35.8 % (39.0-51.0) (39.0-51.0) Neutrophils (%) (Auto) 70.4 % (16.0-70.0) Monocytes (%) (Auto) 10.9 % 9.2 % (0.0-8.0) (0.0-8.0) Monocytes # (Auto) 1.2 TH/MM3 (0-0.9) Sodium Level 131 MEQ/L (136-145) Estimat Glomerular Filtration 68 ML/MIN (>89) Rate Random Glucose 130 MG/DL (74-106) Eosinophils (%) (Auto) 5.4 % (0.0-4.0) Imaging Last Impressions Head CT 11/04/16 1716 Signed Impressions: Service Date/Time: Friday, November 04, 2016 19:07 - CONCLUSION: Normal examination. Nadeem Beatty MD CT Angiography 11/04/16 0000 Signed Impressions: Service Date/Time: Friday, November 04, 2016 19:14 - CONCLUSION: No evidence of pulmonary embolism Nadeem Beatty MD Abdomen/Pelvis CT 11/04/16 0000 Signed Impressions: Service Date/Time: Friday, November 04, 2016 19:14 - CONCLUSION: Primarily fatty density mass in the left retroperitoneum has a relatively benign appearance, however followup to document stability would be suggested. No definite acute CT findings in the abdomen or pelvis. Nadeem Beatty MD PE at Discharge GENERAL: Well-developed well-nourished. In no acute distress. SKIN: Warm and dry. Healed scabs on the lower extremities from previous falls. HEENT: Normocephalic. Pupils equal and round. Mucous membranes pink and moist. CARDIOVASCULAR: Regular rate and rhythm. No murmur appreciated. RESPIRATORY: No accessory muscle use. Clear to auscultation. Breath sounds equal bilaterally. GASTROINTESTINAL: Abdomen soft, non-tender, nondistended. Bowel sounds x4. MUSCULOSKELETAL: No obvious deformities. No clubbing or cyanosis. No edema. NEUROLOGICAL: Awake and alert. No focal neurological deficits. Moves upper and lower extremities spontaneously. Normal speech. Nonfocal PSYCHIATRIC: Appropriate mood and affect; insight and judgment normal. Hospital Course Mr. Zelaya is a 75-year-old male with a known history of hypertension and AAA repair in 2013 who presents to the ED with dizziness for two days. Dizziness secondary to orthostatic hypotension versus dehydration: Improved currently asymptomatic. CT report reviewed, no evidence of PE. EF 40%. Continue PT. Encouraged oral intake and sleep position changes. Discontinue IVF. SANDRA hose and abdominal binder. Orthostatic treatment as below. Leukocytosis: Initially WBC 12.4, improved to normal limits. Afebrile. Resolved. Hyponatremia: Initially sodium 129, improved to 137. Resolved. Orthostatic hypotension: Continue Florinef 0.1 mg PO daily and midodrine. Cont Orthostatic blood pressures every six hours. Fall precautions. Generalized weakness secondary to dizziness: Improving. Continued PT. PT recommends rehab. Consulted Case management. Back pain: Patient states that pain is improved. [place] as needed. Constipation: Will continue scheduled Colace. Cont lactulose PRN. Encourage out of bed as tolerated. History of tobacco use: Educated on cessation Retroperitoneal mass: Primarily fatty density mass in the left retroperitoneum incidentally seen on abdominal CT, has relatively benign appearance, follow-up imaging to document stability suggested. DVT prophylaxis: SCDs/TEDs Pt Condition on Discharge: Stable Discharge Disposition: Discharge to SNF Discharge Time: > 30 minutes Discharge Instructions DIET: Follow Instructions for: As Tolerated, No Restrictions Activities you can perform: Regular-No Restrictions Activities to Avoid: Driving Follow up Referrals: PCP Follow-up - 1 Week New Medications: Hydrocodone-Acetaminophen (Hydrocodone-Acetaminophen) 5-325 mg Tab 1 TAB PO Q6HR PRN PAIN SCALE 6-10 #12 TAB Midodrine (Midodrine) 5 Mg Tab 5 MG PO Q8HR low blood pressure #90 TAB Continued Medications: Ascorbic Acid (Vitamin C) 100 Mg Chew 100 MG CHEW Nutritional Supplement Ref 0 TAB Cyanocobalamin (B-12) 1,000 Mcg Cap 1000 MCG PO BID Nutritional Supplement #1 Ref 0 BOTTLE Ricky Jhaveri MD Nov 09, 2016 12:50
== END 2016-11-09 14:40 | DRG 312 ==
LOC: NEPC 14:33 → NEDA 21:41 → OBSVTOIN 21:51 → N06A 23:06 → PH3A 11-07 19:25
PROVIDERS: ADMIT Internal Medicine; ATTEND Internal Medicine
DX: I95.1 Orthostatic hypotension (principal); M62.82 Rhabdomyolysis; K66.8 Other specified disorders of peritoneum; E87.1 Hypo-osmolality and hyponatremia; E86.0 Dehydration; I10 Essential (primary) hypertension; K59.00 Constipation, unspecified; Z72.0 Tobacco use
CPT/HCPCS: 70450; 71020; 71275; 74000; 74177; 80048; 80053; 81001; 82550; 82552; 83735; 84443; 84484; 85025; 85610; 85730; 93005; 93306; 96360; 96374; J1885; J2270; J2405; J7030; Q9967